=== PATIENT | female | born 1975 | race Caucasian/White ===

== ENCOUNTER 2017-04-02 14:54 | Outpatient (CLI) | payer BC ==
--- NOTE | 2017-04-02 16:28 | RAD ---
4 VIEWS LEFT RIBS: Date: 04/02/17 PROVIDED CLINICAL HISTORY: Rib pain. FINDINGS: There is no evidence for a displaced left-sided rib fracture, pleural fluid, or pneumothorax storm collins IMPRESSION: As above. POS: [id number]
== END 2017-04-02 14:55 | disposition home or self-care (01) ==
LOC: NAV RAD 14:54
PROVIDERS: ATTEND Family Medicine
DX: R07.81 Pleurodynia (principal)

== ENCOUNTER 2023-10-15 15:48 | Outpatient (CLI) | payer BC | END 2023-10-15 15:49 | disposition home or self-care (01) | LOC: NAV RAD 15:48 | PROVIDERS: ATTEND Family Medicine | DX: M51.16 Intervertebral disc disorders with radiculopathy, lumbar region (principal) | CPT/HCPCS: 72100 ==